=== PATIENT | male | born 1955 | race Caucasian/White ===

== ENCOUNTER 2023-10-04 16:30 | Emergency (ER) | payer OTHER, SELFPAY ==
[2023-10-04 17:15] VITALS: BP 163/95
--- NOTE | 2023-10-04 17:39 | ED.GENMED ---
History of Present Illness
General
Chief Complaint: Suicidal Ideation
Source: patient
Exam Limitations: none
Time Seen by Provider: 10/04/23 16:51
Nursing documentation reviewed up to this point in time: agreed with
History of Present Illness
History of Present Illness:
pt is a 68 y/o M with h/o bipolar disorder, depression, previous suicide attempt
claims that on the evening of 10/01 he ingested approx 12 tabs of klonopin 0.5 mg, 12 tabs of ambien (mostly 5 mg ,maybe a few 10 mg) and a few benazdryl 25 mg and then duck taped a plsatic bag around his neck
he fell asleep and woke up at some point and had ripped a hole in the bag so he could breathe
he slept a lot of the day yesterday but did reach out to the suicide hotline in the evening and spoke with them
they told him they would call him this morning. pt says he received a phone call this morning and ultimately because of protocol, they called 911
pt is a 201, knows he needs help
his depression is triggered by financial stress. his who lives with him is disabled because of joint problems and can't really get around well
he says that the finances are very upsetting to him
he has been feeling helpless
no voices, no delusions, no hallucinations
he has no symptoms from theoverdose - denies use of tylenol
felt tired yesterday but feels fine today
Past History
Past History
ED Past Medical History: HTN and Psychiatric
Social History
Tobacco: Non-smoker
Alcohol: None
Drug: Marijuana
Personal:
Living: with family
Review of Systems
Review of Systems
Allergies reviewed?: Yes
All Other Systems: Not applicable
Phy Exam
Physical Exam
Physical Exam:
GENERAL: Alert , in no apparent distress awake and alert, no drowsiness
EYE: pupils equal and reactive
NECK: Supple no ligature ortega or redness, full range of motion without discomfort
ENT: o/p clr, mmm.
CARDIAC: Regular rate and rhythm .
LUNGS: Clear breath sounds bilaterally, no acute respiratory distress, no wheezes/rales/rhonchi
ABDOMEN: Soft, without focal tenderness, no r/g, no cvat, normal bowel sounds
NEUROLOGICAL: Alert and oriented, no focal neuro deficits
SKIN: Warm and dry, skin intact.
MUSCULOSKELETAL: No edema, well perfused. neg kristin's sign
PSYCH: Normal and appropriate interaction. Calm and cooperative, reports some depressed mood, no hallucinations, has had suicidal ideation with a plan but now would like help
Course
Orders/Labs/Results
Orders:
Orders
10/04/23 17:19
Electrocardiogram (*1) Stat
Reason for Study: Other
Other Reason for Exam: overdose
EKG- Treatment ONCE
10/04/23 17:56
Acetaminophen Urgent
Alcohol Urgent
Complete Blood Count/With Diff Urgent
Comprehensive Metabolic Panel Urgent
Salicylate Urgent
10/04/23 19:52
Urine Drug Abuse Screen Urgent
Date Specimen was Collected: 10/04/23
Time Specimen was Collected: 19:50
Abnormal Lab Results
10/04/23
17:56
MCH 31.4 H pg
(27.0-31.0)
Absolute Neuts (auto) 8.3 H 10^3/uL
(1.4-6.5)
Absolute Monos (auto) 0.7 H 10^3/uL
(0.1-0.6)
Neutrophils % 80.9 H %
(42.2-75.2)
Lymphocytes % 11.4 L %
(20.5-51.1)
Salicylates < 1.0 L mg/dl
(2.0-20.0)
Acetaminophen < 10 L ug/ml
(10-30)
10/04/23 17:56
10/04/23 17:56
Vital Signs
Initial and Last Documented VS:
Initial Vital Signs
Temp Pulse Resp BP Pulse Ox
97.4 F 64 18 163/95 97
10/04/23 17:15 10/04/23 17:15 10/04/23 17:15 10/04/23 17:15 10/04/23 17:15
Last Documented Vital Signs
Temp Pulse Resp BP Pulse Ox
97.4 F 62 18 168/92 97
10/04/23 17:15 10/04/23 20:00 10/04/23 20:00 10/04/23 20:00 10/04/23 20:00
MDM/Problems Addressed
Differential Diagnosis Includes:
suicidal ideation, overdose, polypharmacy
MDM/Problems Addressed:
68 y/o M
hh/o depression/suicidal thoughts here after ingestion of multiple medications > 36 hours ago in attempt to commit suicide
he did fall asleep but the bag tied arond his neck was loose or had a hole in it he could breathe through
he did not tie the bag tightly and pass out
he called [facility] himself and ultimately agreed to come in as 201
he is calm and cooperative
awake and alert
no medical complaints
screening labs unremarkable
crisis eval --> placement arranged to [facility]. they did not communicate with me prior to him being discharged but he was medically cleared
*Critical Care Note
Total Time (30-74mins, 75-104mins- exclusive of procedures): Not Applicable
ED Attending Note
-
Portions of this chart may have been created with voice recognition software.� Occasional wrong word or��sound alike� substitutions may have occurred due to the inherent limitations of voice recognition software.
Discharge Plan
Departure
Patient Disposition: Psych Facility
Date of Disposition: 10/04/23
Time of Disposition: 20:08
Patient with high blood pressure during this ER visit?: Yes
Condition: Fair
Covid-19: Not Applicable
Discharge Problem:
Suicidal ideation, Overdose
Referrals:
UNKNOWN - PT DOES,NOT KNOW [Family Provider] -
Interventions
Interventions:
ED-Psychological Assessment Last Done: 10/04/23 18:04
Discharge Date and Time
Print Language: SINHALA
[2023-10-04 18:03] VITALS: BP 163/95
[2023-10-04 18:12] LABS: % Basophils 0.3 % (0-2); % Eosinophils 0.3 % (0-6); % Immature Granulocytes 0.3 % (0-0.5); % Lymphocytes 11.4 % (20.5-51.1); % Monocytes 6.8 % (1.7-9.3); % Neutrophils 80.9 % (42.2-75.2); Absolute Lymphocytes 1.2 10^3/uL (1.2-3.4); Absolute Monocytes 0.7 10^3/uL (0.1-0.6); Absolute Neutrophils 8.3 10^3/uL (1.4-6.5); Hematocrit 44.6 % (39.0-52.0); Hemoglobin 16.2 g/dL (13.0-18.0); Mean Corp Hgb Conc. 36.3 g/dL (33.0-37.0); Mean Corpuscular Hgb 31.4 pg (27.0-31.0); Mean Corpuscular Volume 86.4 fL (80.0-94.0); Mean Platelet Volume 9.7 fL (7.4-10.4); Nucleated Red Blood Cells % 0 % (-); Platelet Count 225 10^3/uL (130-400); Red Blood Cell Count 5.16 10^6/uL (4.70-6.10); Red Cell Dist. Width 13.2 % (11.5-14.5); White Blood Cell Count 10.2 10^3/uL (4.8-10.8)
[2023-10-04 18:33] LABS: ALT (SGPT) 22 U/L (0-50); AST (SGOT) 32 U/L (17-59); Acetaminophen < 10 ug/ml (10-30); Albumin 4.7 g/dl (3.5-5.0); Alkaline Phosphatase 89 U/L (38-126); Blood Urea Nitrogen 18 mg/dl (9-20); Calcium 9.6 mg/dl (8.4-10.2); Carbon Dioxide 22 mmol/L (22-30); Chloride 104 mmol/L (98-107); Estimated Creatinine Clearance 101 ml/min; Glucose 86 mg/dl (70-99); Potassium 3.6 mmol/L (3.5-5.1); Salicylate < 1.0 mg/dl (2.0-20.0); Sodium 137 mmol/L (135-145); Total Bilirubin 1.1 mg/dl (0.2-1.3); Total Protein 6.8 g/dl (6.3-8.2); eGFR > 60.00
[2023-10-04 18:37] LABS: Alcohol None Detected
[2023-10-04 20:00] VITALS: BP 168/92
[2023-10-04 20:22] LABS: Amphetamines Negative (Negative); Barbiturates Negative (Negative); Benzodiazepines Negative (Negative); Buprenorphine Negative (Negative); Cocaine Negative (Negative); Marijuana Positive (Negative); Methadone Negative (Negative); Methamphetamines Negative (Negative); Opiates Negative (Negative); Phencyclidine Negative (Negative); Tricyclic Antidepressants Negative (Negative)
== END 2023-10-04 20:00 ==
LOC: EMR 16:30
PROVIDERS: Physician Assistant; EMERGENCY PHYSICIAN Emergency Medicine
DX: R45.851 Suicidal ideations (principal); T42.4X2A Poisoning by benzodiazepines, intentional self-harm, initial encounter; T42.6X2A Poisoning by other antiepileptic and sedative-hypnotic drugs, intentional self-harm, initial encounter; T45.0X2A Poisoning by antiallergic and antiemetic drugs, intentional self-harm, initial encounter; R53.83 Other fatigue; I10 Essential (primary) hypertension; Z59.86 Financial insecurity; F31.9 Bipolar disorder, unspecified; Z91.51 Personal history of suicidal behavior
CPT/HCPCS: 99285; 80053; 80143; 80179; 80306; 82077; 85025; 93005

== ENCOUNTER 2024-10-05 05:57 | Day surgery (SDC) | payer OTHER, SELFPAY ==
[2024-09-28 11:31] LABS: Hematocrit 42.8 % (39.0-52.0); Hemoglobin 14.6 g/dL (13.0-18.0); Mean Corp Hgb Conc. 34.1 g/dL (33.0-37.0); Mean Corpuscular Volume 89.4 fL (80.0-94.0); Platelet Count 219 10^3/uL (130-400); Red Cell Dist. Width 13.3 % (11.5-14.5)
[2024-09-28 12:35] VITALS: BMI 30.1
[2024-09-28 12:44] LABS: Blood Urea Nitrogen 12 mg/dl (9-20); Calcium 9.6 mg/dl (8.4-10.2); Carbon Dioxide 31 mmol/L (22-30); Chloride 101 mmol/L (98-107); Estimated Creatinine Clearance 88 ml/min; Glucose 102 mg/dl (70-99); Potassium 4.2 mmol/L (3.5-5.1); Sodium 139 mmol/L (135-145); eGFR > 60.00
[2024-10-05] VITALS (7 sets, daily range): BP systolic 116–137; BP diastolic 66–87; BMI 30.1
[2024-10-05] MEDS: NORMOSOL-R/PLASMALYTE-A 1000 IV (06:47)
== END 2024-10-05 09:58 | disposition home or self-care (01) ==
LOC: SDS 05:57
PROVIDERS: ATTENDING PHYSICIAN Specialist; FAMILY PHYSICIAN Nurse Practitioner Family
DX: N43.3 Hydrocele, unspecified (principal)
CPT/HCPCS: 55040; 36415; 80048; 85027; 88302; 93005

== ENCOUNTER → 2024-12-24 10:05 | Outpatient (REF) | payer OTHER, SELFPAY | LOC: RAD 10:05 | PROVIDERS: ATTENDING PHYSICIAN Nurse Practitioner Family | DX: I10 Essential (primary) hypertension (principal) | CPT/HCPCS: 93975 ==